=== PATIENT | female | born 1985 | race Caucasian/White ===

== ENCOUNTER 2017-01-22 18:34 | Emergency (ER) | payer OTHER ==
[2017-01-22 18:43] VITALS: BP 116/75; PULSE 71; RESP 18; TEMP 97.2; O2SAT 98
--- NOTE | 2017-01-22 19:15 | EDPHY ---
H & P Stated Complaint: Free diving in [place];facial swelling,bilat ear pain,abd pain w/nausea. Time Seen by Provider: 01/22/17 19:15 - Personal History LMP (Females 10-55): 22-28 Days Ago Current Tetanus Diphtheria and Acellular Pertussis (TDAP): Yes - Medical/Surgical History Other PMH: healthy - Social History Smoking Status: Never smoked Constitutional: Initial Vital Signs Temperature (C) 36.2 C 01/22/17 18:35 Heart Rate 71 01/22/17 18:35 Respiratory Rate 18 01/22/17 18:35 Blood Pressure 116/75 01/22/17 18:35 O2 Sat (%) 98 01/22/17 18:35 O2 Delivery Mode Room Air Allergies/Adverse Reactions: No Known Allergies Allergy (Verified 01/22/17 18:37) Home Medications: Medication Instructions Recorded Cefuroxime Axetil [Cefuroxime] 250 mg PO 01/22/17 [place] 01/22/17 Medical Decision Making ED Course/Re-evaluation: CHIEF COMPLAINT: Ear/sinus pain. HISTORY OF PRESENT ILLNESS: The patient is a 31-year-old female who presents with sinus and ear pain. She reports that she was in [place] for a month free- diving and on an 80 foot dive she equalized improperly, causing the initial ear pain. The pain moved to her sinuses and her face became puffy. She admits associated abdominal pain which began after she was started on antibiotics by Urgent Care. REVIEW OF SYSTEMS: A 10 point review of systems was performed and is negative with the exception of the elements mentioned in the history of present illness. PHYSICAL EXAM: HR, BP, O2 Sat, RR. Temp noted General Appearance: Alert, well hydrated, appropriate, and non-toxic appearing. Head: Atraumatic without scalp tenderness or obvious injury Eyes: Pupils equal, round, reactive to light and accommodation, EOMI, no trauma , no injection. Ears: Clear bilaterally, no perforation, normal landmarks Nose: Atraumatic, no rhinorrhea, clear. Throat: There is no erythema or exudates, no lesions, normal tonsils, mucus membranes moist. Neck: Supple, 2+ carotid upstroke, nontender, no lymphadenopathy. Respiratory: No retractions, no distress, no wheezes, and no accessory muscle use. Lungs are clear to auscultation bilaterally. Cardiovascular: Regular rate and rhythm, no murmurs, rubs, or gallops. Bilateral carotid, radial, dorsalis pedis, and posterior tibial pulses intact. Good capillary refill all extremities. Gastrointestinal: Abdomen is soft, nontender, non-distended, no masses, no rebound, no guarding, no peritoneal signs. Musculoskeletal: Normal active ROM of all extremities, atraumatic. Neurological: Alert, appropriate, and interactive. The patient has normal DTRs and non-focal cranial nerves, motor, sensory, and cerebellar exam. Skin: No rashes, good turgor, no nodules on palpation. Past medical history:Denies. Past surgical history:Denies. Family history:N/A. Social history:Here alone. DIAGNOSTICS/PROCEDURES/CRITICAL CARE TIME: DIFFERENTIAL DIAGNOSIS: The differential diagnosis includes but is not limited to ruptured tympanic membrane, sinusitis, viral illness. MEDICAL DECISION MAKING: This is a 31-year-old female who presents with ear and sinus pain. She was diving in [place] and improperly equalized, causing the pain to start. She was placed on antibiotics by a doctor in [place] for sinusitis. She then developed abdominal pain which I believe is due to the antibiotics. I recommended she follow up with an ENT doctor and discontinue use of the antibiotics if they continued to cause her abdominal pain. I instructed her to use Flonase and Mucinex. She is comfortable with the plan and has been discharged. - Data Points Laboratory Results: 01/22/17 01/22/17 18:55 18:55 Urine Color PALE YELLOW Urine Appearance CLEAR Urine pH 7.0 (5.0-7.5) Ur Specific [place] 1.006 (1.002-1.030) Urine Protein NEGATIVE (NEGATIVE) Urine Ketones NEGATIVE (NEGATIVE) Urine Blood NEGATIVE (NEGATIVE) Urine Nitrate NEGATIVE (NEGATIVE) Urine Bilirubin NEGATIVE (NEGATIVE) Urine Urobilinogen NEGATIVE EU EU (0.2-1.0) Ur Leukocyte Esterase NEGATIVE (NEGATIVE) Urine Glucose NEGATIVE (NEGATIVE) Urine Test NEGATIVE Departure - Departure Disposition: Home, Routine, Self-Care Clinical Impression: Ear pain, right Sinusitis Qualifiers: Sinusitis location: unspecified location Chronicity: unspecified Qualified Code (s): J32.9 - Chronic sinusitis, unspecified Condition: Good Instructions: Sinusitis (ED), Earache (ED) Additional Instructions: Use Flonase one puff in each nostril every morning and evening. Use Mucinex as instructed. Drink plenty of fluids. Call Dr. Stiles, ENT, tomorrow, to set up a follow up appointment. Return for any serious worsening of condition. Referrals: Dereck Stiles MD [Medical Doctor] - As per Instructions Report Scribed for: Cuong Knapp Report Scribed by: Lobito Purvis Date of Report: 01/22/17 Time of Report: 19:17
[2017-01-22 19:18] LABS: COLOR PALE YELLOW; LEUKOCYTE ESTERASE,URINE NEGATIVE (NEGATIVE); NITRITE,URINE NEGATIVE (NEGATIVE)
== END 2017-01-22 19:25 | disposition home or self-care (01) ==
DX: H92.01 Otalgia, right ear (principal); J32.9 Chronic sinusitis, unspecified